=== PATIENT | male | born 2000 | race Two or more races ===

== ENCOUNTER 2025-03-06 10:54 | Emergency (ER) | payer OTHER ==
[~2025-03-06] VITALS: Ht 182.9 cm; Wt 111.1 kg
[2025-03-06] MEDS ORDERED: LEVOTHYROXINE25 MCG (10:59)
[2025-03-06] MEDS ORDERED: GUAIFENESIN/DEXTROMETHORPHAN 100MG/10ML BLIST.PACK PO ONE ×2 (13:15→13:22)
[2025-03-06 13:42] LABS: BASO % 0.3 % (0.1-1.2); EOS % 1.3 % (0.7-7.0); HEMOGLOBIN 15.4 g/dL (13.7-17.5); LYMPH # 1.96 (1.18-3.74); LYMPH % 24.8 % (19.3-53.1); MEAN CORPUSCULAR HEMOGLOBIN 27.8 pg (25.6-32.2); MONO # 0.96 (0.24-0.82); NEUT # 4.85 (1.56-6.13); NEUT % 61.2 % (34.0-71.1); PLATELET COUNT 225 K/uL (163-369); RED BLOOD COUNT 5.54 M/uL (4.63-6.08)
[2025-03-06 13:43] LABS: HEMATOCRIT 46.3 % (40.1-51.0); MONO % 12.1 % (4.7-12.5)
[2025-03-06 13:55] LABS: COVID-19 AG NEGATIVE (NEGATIVE)
[2025-03-06 13:56] LABS: INFLUENZA A AG NEGATIVE (NEGATIVE); INFLUENZA B AG NEGATIVE (NEGATIVE)
[2025-03-06] MEDS ORDERED: GILTUSS COUGH-118 M1 PO (16:10)
[2025-03-06] MEDS ORDERED: ACETAMINOPHEN500 M1 PO (16:10)
== END 2025-03-06 16:25 | disposition home or self-care (01) ==
LOC: ER 11:17
PROVIDERS: Preventive Medicine Public Health & General Preventive Medicine
DX: J06.9 Acute upper respiratory infection, unspecified (principal); E03.8 Other specified hypothyroidism; Z20.822 Contact with and (suspected) exposure to COVID-19